=== PATIENT | male | born 1990 | race Caucasian/White ===

== ENCOUNTER 2017-11-02 11:07 | Emergency (ER) | payer OTHER ==
[2017-11-02 11:14] VITALS: BP 131/80
[2017-11-02] MEDS ORDERED: IBUPROFEN 800 MG TABLET PO STA (12:06)
--- NOTE | 2017-11-02 12:09 | ED Physician Documentation ---
PD HPI HEENT - Stated complaint Stated Complaint: SORE THROAT - Chief complaint Chief Complaint: Heent - History obtained from History obtained from: Patient - History of Present Illness Timing - onset: How many days ago (5) Timing - details: Gradual onset Location: Throat Similar symptoms before: Has not had sx before - Additional information Additional information: The patient is a 27-year-old [employer] [place] male who presents with sore throat of 5 days' duration. He denies any associated symptoms such as headache , earache, fever, or cough. He denies history of similar symptoms in the past. Review of Systems Constitutional: denies: Fever Eyes: denies: Irritation Ears: denies: Ear pain Nose: denies: Congestion Throat: reports: Sore throat Cardiac: denies: Chest pain / pressure Respiratory: denies: Dyspnea, Cough GI: denies: Abdominal Pain, Nausea, Vomiting Skin: denies: Rash Musculoskeletal: denies: Back pain Neurologic: denies: Headache PD PAST MEDICAL HISTORY - Past Medical History Past Medical History: No - Past Surgical History Past Surgical History: No - Present Medications Home Medications: Ambulatory Orders Medication Instructions Recorded Confirmed Ibuprofen 800 mg PO TID PRN #20 tablet 11/02/17 - Allergies Allergies/Adverse Reactions: Allergies Allergy/AdvReac Type Severity Reaction Status Date / Time No Known Drug Allergies Allergy Verified 11/02/17 11:14 - Social History Does the pt smoke?: Yes Smoking Status: Current every day smoker - Immunizations Immunizations are current?: Yes PD ED PE NORMAL - Vitals Vital signs reviewed: Yes (normal) - General General: Alert and oriented X 3, Well developed/nourished - HEENT HEENT: Atraumatic, EOMI, Ears normal, Moist mucous membranes, Other (Oropharynx mildly erthematous, without exudates.) - Neck Neck: Supple, no meningeal sign, Other (Mildly enlarged anterior cervical nodes bilaterally.) - Cardiac Cardiac: RRR, No murmur - Respiratory Respiratory: No respiratory distress, Clear bilaterally - Derm Derm: No rash - Neuro Neuro: Alert and oriented X 3, Normal speech Results - Vitals Vitals: Oxygen O2 Source Room air - Labs Labs: Microbiology 11/02/17 11:20 Group A Strep Throat Culture - Preliminary Throat MIXED OROPHARYNGEAL VLAD PRESENT. NO BETA STREP PRESENT IN CULTURE. Laboratory Tests 11/02/17 11:20 Group A Strep Rapid Negative PD MEDICAL DECISION MAKING - ED course Complexity details: reviewed results, re-evaluated patient, considered differential, d/w patient ED course: The patient's presentation is most consistent with acute viral pharyngitis. His presentation does not suggest meningitis, peritonsillar abscess, or pneumonia. Rapid strep screen is negative. Treatment in the emergency department included administration of ibuprofen 800 mg orally. I discussed with him the expected course of illness, symptomatic treatment and outpatient follow-up, as well as potentially worrisome signs or symptoms that should prompt reevaluation in the emergency department. Departure - Departure Disposition: Home, Self Care Clinical Impression: Viral pharyngitis Condition: Stable Instructions: ED Pharyngitis Viral Follow-Up: EMELY Nevarez [Provider Group] Prescriptions: Ibuprofen 800 mg PO TID PRN #20 tablet PRN Reason: Pain Comments: You can gargle with cool liquids. You can use ibuprofen up to 3 times daily if needed for fever or sore throat. Follow up with your primary physician within 1-2 weeks. Call to schedule appointment. Return to the emergency department if you develop increasing difficulty swallowing, or otherwise worsening symptoms. Discharge Date/Time: 11/02/17 13:05
== END 2017-11-02 13:05 | disposition home or self-care (01) ==
LOC: ED 11:07
DX: J02.8 Acute pharyngitis due to other specified organisms (principal); B97.89 Other viral agents as the cause of diseases classified elsewhere
CPT/HCPCS: 87070; 87430; 99283; A9270